=== PATIENT | female | born 1990 | race Caucasian/White ===

== ENCOUNTER 2024-04-22 06:08 | Day surgery (SDC) | payer OTHER ==
[~2024-04-22] VITALS: Ht 160 cm; Wt 59.9 kg
[2024-04-22] MEDS ORDERED: CEFAZOLIN SOD 2 GM in D5W 50 ML IV ONE (07:00)
[2024-04-22] MEDS ORDERED: NS IRRIG SOLN 1000 ML IR ONE (07:42)
[2024-04-22] MEDS ORDERED: LR 1,000 ML IV.SOLN IV ONE (07:42)
[2024-04-22] MEDS ORDERED: PROPOFOL 200MG/ 20ML VIAL (DIPRIVAN) IV ONE (07:42)
[2024-04-22] MEDS ORDERED: KETOROLAC TROMETHAMINE 30 MG VIAL ONE (07:42)
[2024-04-22] MEDS ORDERED: ONDANSETRON HCL 4 MG/2 ML VIAL ONE (07:42)
[2024-04-22] MEDS ORDERED: ACETAMINOPHEN I.V. 1000 MG 100 ML IV ONE (07:49)
[2024-04-22] MEDS ORDERED: KETAMINE HCL IN 0.9 % NACL 50 MG/5 ML SYRINGE ONE (07:49)
[2024-04-22] MEDS ORDERED: MIDAZOLAM HCL 2 MG/2 ML VIAL (VERSED) ONE (07:49)
[2024-04-22 08:10] VITALS: O2SAT 100
[2024-04-22] MEDS ORDERED: ONDANSETRON HCL 4 MG/2 ML VIAL IVP PRN (08:45)
[2024-04-22] MEDS ORDERED: HYDROcodone/ACETAMIN 5-325 MG TAB (NORCO/ VICODIN) PO PRN (08:45)
[2024-04-22] MEDS ORDERED: OXYCODONE/ACETAMINOPHEN 5-325 TABLET PO PRN ×2 (08:45)
[2024-04-22 17:12] VITALS: BP_SYST 102; PULSE 50; RESP 16; TEMP 98.2
== END 2024-04-22 11:27 | disposition home or self-care (01) ==
LOC: SDS 06:08 → SMU 06:09 → SDS 11:27
PROVIDERS: ATTEND Specialist
DX: N92.0 Excessive and frequent menstruation with regular cycle (principal); N84.0 Polyp of corpus uteri; R93.89 Abnormal findings on diagnostic imaging of other specified body structures; G43.909 Migraine, unspecified, not intractable, without status migrainosus; E28.2 Polycystic ovarian syndrome; Z88.2 Allergy status to sulfonamides; Z88.8 Allergy status to other drugs, medicaments and biological substances; Z98.818 Other dental procedure status
CPT/HCPCS: 87081; 58561; 88305; J0690; J1885; J2405; J2704; J7060; J7120; C1819; J0131; J2250